=== PATIENT | male | born 1980 | race African-American/Black ===

== ENCOUNTER 2018-03-29 06:22 | Day surgery (SDC) | payer BC ==
[2018-03-29] MEDS ORDERED: ROPIVACAINE 0.5 % 30 ML VIAL (06:59)
[2018-03-29] MEDS ORDERED: ROCURONIUM 50 MG INJ (07:00)
[2018-03-29] MEDS ORDERED: NEOMYC/POLYMYX/BACIT 30 GM OINT (07:00)
[2018-03-29] MEDS ORDERED: MIDAZOLAM 1 MG/ML 2 ML INJ (07:41)
[2018-03-29] MEDS ORDERED: CA CHLORIDE 10% 10 ML SYRINGE (08:17)
[2018-03-29] MEDS ORDERED: THROMBIN 5000 UNIT VIAL (08:17)
[2018-03-29] MEDS ORDERED: morphine 10 MG INJ (09:40)
[2018-03-29] MEDS: POLYMYXIN/BACITRACIN 1L IRRIG (10:30)
[2018-03-29] MEDS: ROPIVACAINE 0.5 % 30 ML VIAL (10:30)
[2018-03-29] MEDS ORDERED: LIDOCAINE 2% (SDV) 5 ML INJ (10:34)
[2018-03-29] MEDS ORDERED: PROPOFOL 20 ML (10:34)
[2018-03-29] MEDS ORDERED: CEFAZOLIN 1 GM INJ (10:35)
[2018-03-29] MEDS ORDERED: ONDANSETRON 4 MG INJ (10:36)
[2018-03-29] MEDS ORDERED: morphine 2 MG INJ IV (11:00)
[2018-03-29] MEDS ORDERED: MEPERIDINE 25 MG INJ IV (11:00)
[2018-03-29] MEDS ORDERED: FENTAnyl 50 MCG/ML VIAL IV (11:00)
[2018-03-29] MEDS ORDERED: HYDROmorphONE 1 MG/5 ML IV SYRINGE IV ×2 (11:00)
[2018-03-29] MEDS ORDERED: NALOXONE (0.4 MG/ML) INJ IV (11:00)
[2018-03-29] MEDS ORDERED: METOCLOPRAMIDE 10 MG INJ IV (11:00)
[2018-03-29] MEDS ORDERED: DIPHENHYDRAMINE 50 MG INJ IV (11:00)
[2018-03-29] MEDS ORDERED: ONDANSETRON 4 MG INJ IV (11:00)
== END 2018-03-29 12:44 | disposition home or self-care (01) ==
LOC: SDS 06:22
DX: S76.112D Strain of left quadriceps muscle, fascia and tendon, subsequent encounter (principal); X58.XXXD Exposure to other specified factors, subsequent encounter; I10 Essential (primary) hypertension
CPT/HCPCS: 27385; 82306